=== PATIENT | female | born 1985 | race Caucasian/White ===

== ENCOUNTER 2020-08-18 17:29 | Outpatient (NON) | payer BC, SELFPAY | END 2020-08-18 17:30 | disposition home or self-care (01) | LOC: ANHLAB 17:30 | PROVIDERS: Visit Provider Nurse Practitioner | DX: L02.91 Cutaneous abscess, unspecified (principal) | CPT/HCPCS: 87070; 87075; 87205 ==

== ENCOUNTER → 2020-10-15 09:39 | Outpatient (REF) | payer BC, SELFPAY | LOC: ANHLAB 09:39 | PROVIDERS: Visit Provider Nurse Practitioner | DX: L91.0 Hypertrophic scar (principal) | CPT/HCPCS: 88304; 88305 ==

== ENCOUNTER 2022-05-23 09:00 | Outpatient (NON) | payer BC, SELFPAY | END 2022-05-23 09:01 | disposition home or self-care (01) | PROVIDERS: Visit Provider Nurse Practitioner | DX: L72.0 Epidermal cyst (principal) | CPT/HCPCS: 88304 ==